=== PATIENT | female | born 1975 | race Caucasian/White ===

== ENCOUNTER 2017-09-29 10:47 | Outpatient (CLI) | payer OTHER ==
[2017-09-29 18:11] LABS: BASOPHILS % (AUTO) 0.3 %; EOSINOPHILS % (AUTO) 0.7 %; HCT - HEMATOCRIT 40.9 % (37.0-47.0); HGB - HEMOGLOBIN 13.6 g/dL (12.0-16.0); LYMPHOCYTES # (AUTO) 1.8 10^3/uL (1.5-3.5); LYMPHOCYTES % (AUTO) 40.1 %; MEAN CORPUSCULAR HEMOGLOBIN 33.1 pg (27.0-31.0); MEAN CORPUSCULAR HGB CONC 33.2 g/dL (32.0-36.0); MEAN CORPUSCULAR VOLUME 99.7 fL (81.0-99.0); MEAN PLATELET VOLUME 10.4 fL (7.9-10.8); MONOCYTES # (AUTO) 0.2 10^3/uL (0.0-1.0); NEUTROPHILS # (AUTO) 2.4 10^3/uL (1.5-6.6); NEUTROPHILS % (AUTO) 53.9 %; NUCLEATED RED BLOOD CELLS AUTO 0.1 /100WBC; UNCORRECTED WHITE BLOOD COUNT 4.4 x10^3/uL; WHITE BLOOD COUNT 4.4 x10^3/uL (4.8-10.8)
[2017-09-29 18:26] LABS: ALBUMIN/GLOBULIN RATIO 1.4 (1.0-2.2); BILIRUBIN,TOTAL 0.7 mg/dL (0.2-1.0); BUN - BLOOD UREA NITROGEN 12 mg/dL (6-20); CALCIUM 8.9 mg/dL (8.5-10.3); CARBON DIOXIDE - CO2 25 mmol/L (21-32); CHLORIDE 101 mmol/L (101-111); CHOL/HDL RATIO 2.5 (<4.4); CHOLESTEROL 187 mg/dL; CREATININE 0.9 mg/dL (0.4-1.0); GFR - MDRD 69 (>89); GLUCOSE 83 mg/dL (70-100); HDL CHOLESTEROL 76 mg/dL; LDL/HDL RATIO 1.1 (<4.4); POTASSIUM 3.7 mmol/L (3.5-5.0); SODIUM 135 mmol/L (135-145); TOTAL PROTEIN 7.1 g/dL (6.7-8.2); TRIGLYCERIDES 124 mg/dL; VLDL CHOLESTEROL 25 mg/dL
[2017-09-29 18:37] LABS: THYROID STIMULATING HORMONE 6.5 uIU/mL (0.34-5.60)
[2017-09-29 18:42] LABS: FERRITIN 18.7 ng/mL (11.0-306.8)
== END 2017-09-29 10:48 | disposition home or self-care (01) ==
LOC: LAB.F 10:47
PROVIDERS: ATTEND Nurse Practitioner Family
DX: Z00.00 Encounter for general adult medical examination without abnormal findings (principal); E55.9 Vitamin D deficiency, unspecified; E78.5 Hyperlipidemia, unspecified; E03.9 Hypothyroidism, unspecified
CPT/HCPCS: 36415; 80053; 80061; 82306; 82728; 84436; 84439; 84443; 84481; 85025; 86376

== ENCOUNTER 2021-12-03 15:20 | Outpatient (CLI) | payer OTHER ==
--- NOTE | 2021-12-04 09:49 | Ultrasound Report ---
PROCEDURE: Pelvic w/Transvaginal INDICATIONS: ABNORMAL UTERINE AND VAGINAL BLEEDING TECHNIQUE: Real-time scanning was performed of the pelvic organs, with image documentation. Additional endovagi nal scanning was necessary due to incomplete visualization of the adnexal and endometrial structures by transabdominal scanning. COMPARISON: None. FINDINGS: No pathologic free abdominal or pelvic fluid. Uterus: Uterus is slightly retroverted and normal in size at 8.4 x 4.7 x 5.5 cm. Myometrial echotext ure is mildly heterogeneous. There are echogenic foci in the endocervix and in the fundal endometrium . There is a tiny subendometrial cyst near the lower uterine segment. The endometrium measures 3.5 mm in combined thickness. No myometrial masses. Ovaries: Right ovary measures 2.7 x 1.2 x 1.3 cm for a volume of 2.2 cc. The left ovary measures 3.3 x 1.1 x 1.1 cm for a volume of 2.1 cc. No cyst or solid mass associated with either ovary. There are prominent bilateral paraovarian vessels. IMPRESSION: Retroverted, normal size uterus with heterogeneity and a submucosal cyst raising the possibility of a denomyosis. Thin endometrium is appropriate for postmenopausal female. Prominent ovarian vasculature adjacent to appropriate size ovaries for postmenopausal female. Reviewed by: Abbie Guajardo MD on 12/04/2021 9:47 AM PST Approved by: Abbie Guajardo MD on 12/04/2021 9:47 AM PST Station ID: [id number]
== END 2021-12-03 15:21 | disposition home or self-care (01) ==
LOC: DI 15:20
PROVIDERS: ATTEND Naturopath
DX: N93.9 Abnormal uterine and vaginal bleeding, unspecified (principal); N85.4 Malposition of uterus; N85.8 Other specified noninflammatory disorders of uterus

== ENCOUNTER 2021-12-22 12:54 | Outpatient (CLI) | payer OTHER ==
--- NOTE | 2021-12-23 07:26 | Mammography Report ---
BILATERAL DIGITAL SCREENING MAMMOGRAM 3D/2D WITH EXAGGERATED CC: 12/22/2021 CLINICAL: Baseline exam. Family history of breast cancer. Routine screening. No prior exams were available for comparison. The tissue of both breasts is heterogeneously dense. T his may lower the sensitivity of mammography. There is a round equal density mass with an obscured, indistinct, and circumscribed margin in the rig ht breast at 8 o'clock middle depth. No other significant masses, calcifications, or other findings are seen in either breast. IMPRESSION: INCOMPLETE: NEEDS ADDITIONAL IMAGING EVALUATION The round equal density mass in the right breast is indeterminate. Mediolateral and spot compression views as well as additional views with possible ultrasound are recommended. This exam was interpreted at Station ID: [id number]. NOTE: For mammograms, a report in lay terms will be sent to the patient. Approximately 15% of breast malignancies will not be visualized mammographically. In the management of a palpable breast mass, a negative mammogram must not discourage biopsy of a clinically suspicious lesion. Electronically Signed By: Apolinar Laurent M.D. ddp/:12/22/2021 15:14:23 ACR BI-RADS Category 0: Incomplete 3340F PARENCHYMAL PATTERN: (D) - The breast(s) demonstrate(s) heterogeneously dense fibroglandular parenchy ma. BI-RADS CATEGORY: (0) - 0 Mammo and [place] [id number] Immediate follow-up LATERALITY: (B)
== END 2021-12-22 12:55 | disposition home or self-care (01) ==
LOC: DI.S 12:54
PROVIDERS: ATTEND Naturopath
DX: Z12.31 Encounter for screening mammogram for malignant neoplasm of breast (principal); Z80.3 Family history of malignant neoplasm of breast; R92.8 Other abnormal and inconclusive findings on diagnostic imaging of breast